=== PATIENT | female | born 1950 | race Caucasian/White ===

== ENCOUNTER → 2019-01-27 | Outpatient (CLI) | payer MEDICARE, OTHER | LOC: LAB SHORT 11:36 → LAB 11:36 | DX: N39.0 Urinary tract infection, site not specified (principal); R30.0 Dysuria | CPT/HCPCS: 87077; 87086; 87186 ==

== ENCOUNTER → 2020-10-28 | Outpatient (CLI) | payer MEDICARE, OTHER | END | disposition home or self-care (01) | LOC: PLD 11:30 → LAB SHORT 11:30 | DX: N30.00 Acute cystitis without hematuria (principal) | CPT/HCPCS: 87077; 87086; 87186 ==

== ENCOUNTER 2023-09-02 08:18 | Day surgery (SDC) | payer MEDICARE, OTHER ==
[~2023-09-02] VITALS: Ht 157.5 cm; Wt 102.5 kg
[~2023-09-02 08:18] MED LIST: Crestor40 MG PO; METO50 PO; VITAMIN D31000 UNI1 PO
--- NOTE | 2023-09-02 08:47 | NUR ---
09/02/23 0847 Reji Fagan CALL LIGHT WITHIN REACH. PROPARACAINE IN RIGHT EYE AT 0841 AND PLEDGETT IN AT 0842
[2023-09-02 09:50] VITALS: BP 157/62
== END 2023-09-02 10:08 | disposition home or self-care (01) ==
LOC: ORSCSDS 08:18
PROVIDERS: Student in an Organized Health Care Education/Training Program
PROC: 08RJ3JZ Replacement of Right Lens with Synthetic Substitute, Percutaneous Approach (ICD-10-PCS; principal; 2023-09-02 09:30)
DX: H25.13 Age-related nuclear cataract, bilateral (principal); E66.9 Obesity, unspecified; Z68.41 Body mass index [BMI] 40.0-44.9, adult; Z79.899 Other long term (current) drug therapy
CPT/HCPCS: J2250; J3010; J7040; V2632

== ENCOUNTER 2023-09-09 07:14 | Day surgery (SDC) | payer MEDICARE, OTHER ==
[~2023-09-09] VITALS: Ht 157.5 cm; Wt 99.1 kg
--- NOTE | 2023-09-09 07:43 | NUR ---
09/09/23 0743 Vannessa Baer 1 DROP OF PROPARACAINE ADMINISTERED TO THE LEFT EYE AT 0736, PLEDGET PLACED AT 0738 BY [email or web address] PT JANES WELL
[2023-09-09 08:44] VITALS: BP 193/72
== END 2023-09-09 08:52 | disposition home or self-care (01) ==
LOC: ORSCSDS 07:14
PROVIDERS: Student in an Organized Health Care Education/Training Program
PROC: 08RK3JZ Replacement of Left Lens with Synthetic Substitute, Percutaneous Approach (ICD-10-PCS; principal; 2023-09-09 08:30)
DX: H25.12 Age-related nuclear cataract, left eye (principal); Z96.1 Presence of intraocular lens; I73.9 Peripheral vascular disease, unspecified; E66.9 Obesity, unspecified; Z68.41 Body mass index [BMI] 40.0-44.9, adult; Z87.891 Personal history of nicotine dependence; Z79.899 Other long term (current) drug therapy
CPT/HCPCS: J2250; J3010; J7040; V2632